=== PATIENT | female | born 1985 | race Caucasian/White ===

== ENCOUNTER 2018-06-23 19:03 | Emergency (ER) | payer OTHER, MEDICAID ==
[~2018-06-23] VITALS: Ht 170.2 cm; Wt 72.6 kg
[2018-06-23] MEDS ORDERED: PHENERGAN 25 MG25 M1 PO (19:12)
[2018-06-23] MEDS ORDERED: HYDROXYZINE HCL25 M1 PO (19:13)
[2018-06-23 19:24] LABS: URINE BILIRUBIN NEGATIVE (Negative); URINE BLOOD TRACE (Negative); URINE CLARITY CLEAR; URINE COLOR YELLOW; URINE GLUCOSE-RANDOM NEGATIVE (Negative); URINE KETONES NEGATIVE (Negative); URINE LEUKOCYTES-REFLEX NEGATIVE (Negative); URINE NITRITE-REFLEX NEGATIVE (Negative); URINE PROTEIN NEGATIVE (Negative); URINE SPECIFIC GRAVITY <= 1.005 (1.005-1.030); URINE UROBILINOGEN 0.2 E.U./dl (0.2-1.0)
[2018-06-23 19:34] LABS: ABSOLUTE BASOPHILS 0.1 thou/uL (0.0-0.2); ABSOLUTE EOSINOPHILS 0.1 thou/uL (0.0-0.7); ABSOLUTE LYMPHOCYTES 2.6 thou/uL (0.8-5.3); ABSOLUTE MONOCYTES 0.7 thou/uL (0.0-1.2); ABSOLUTE NEUTROPHILS 4.7 thou/uL (1.6-8.1); BASOPHILS 0.9 %; EOSINOPHILS 0.7 %; HEMATOCRIT 40.4 % (37.0-47.0); HEMOGLOBIN 13.4 gm/dL (12.0-15.0); LYMPHOCYTES 31.7 %; MCH 28.8 pg (26.0-34.0); MCHC 33.1 g/dL (28.0-37.0); MCV 86.8 fL (80.0-100.0); MONOCYTES 8.4 %; MPV 9.1 fl. (7.2-11.1); NUCLEATED RBCS 0 /100WBC; PLATELET COUNT* 301 thou/uL (150-400); POLYS 58.3 %; RBC 4.65 mil/uL (4.20-5.00); RDW-CV 15.6 % (10.5-14.5); WBC 8.1 thou/uL (4.0-11.0)
[2018-06-23 19:37] LABS: BACTERIA-REFLEX 1-9 Few /HPF (None Seen); SQUAMOUS 0-3 Few /LPF (0-3); URINE RBC 0-2 Rare /HPF (0-2); URINE WBC-REFLEX 0-5 Rare /HPF (0-5)
[2018-06-23 19:38] LABS: CASTS None Seen /LPF (None Seen); CRYSTALS None Seen /LPF (None Seen)
[2018-06-23 19:45] LABS: CALCIUM 8.6 mg/dL (8.5-10.1); CREATININE 0.7 mg/dL (0.6-1.3); POTASSIUM 3.7 mmol/L (3.5-5.1)
[2018-06-23 19:49] LABS: ALBUMIN 3.7 g/dL (3.4-5.0); TOTAL BILIRUBIN 0.5 mg/dL (<0.1-1.0); TOTAL PROTEIN 7.7 g/dL (6.4-8.2)
[2018-06-23] MEDS ORDERED: BENTYL 20 MG TA20 M1 PO (20:02)
[2018-06-23] MEDS ORDERED: ZOFRAN4 MG PO (20:02)
[2018-06-23 20:23] VITALS: BP 137/81
== END 2018-06-23 20:26 | disposition home or self-care (01) ==
LOC: M.ERS 19:03
PROVIDERS: Nurse Practitioner Family
DX: K52.9 Noninfective gastroenteritis and colitis, unspecified (principal)

== ENCOUNTER 2021-11-21 06:29 | Emergency (ER) | payer OTHER, MEDICAID ==
[~2021-11-21] VITALS: Ht 170.2 cm; Wt 59.0 kg
[~2021-11-21 06:29] MED LIST: BENTYL 20 MG TA20 M1 PO; HYDROXYZINE HCL25 M1 PO; PHENERGAN 25 MG25 M1 PO; ZOFRAN4 MG PO
[2021-11-21 07:25] LABS: URINE BILIRUBIN NEGATIVE (Negative); URINE BLOOD 3+ (Negative); URINE CLARITY SL CLOUDY; URINE COLOR YELLOW; URINE GLUCOSE-RANDOM NEGATIVE (Negative); URINE KETONES NEGATIVE (Negative); URINE LEUKOCYTES-REFLEX 1+ (Negative); URINE NITRITE-REFLEX NEGATIVE (Negative); URINE PROTEIN 1+ (Negative); URINE SPECIFIC GRAVITY >= 1.030 (1.005-1.030); URINE UROBILINOGEN 0.2 E.U./dl (0.2-1.0)
[2021-11-21 07:40] LABS: SQUAMOUS 4-10 Moderate /LPF (0-3)
[2021-11-21 07:41] LABS: BACTERIA-REFLEX >30 Many /HPF (None Seen); CASTS None Seen /LPF (None Seen); CRYSTALS None Seen /LPF (None Seen); MUCUS 0-3 Light strn/LPF (None Seen); URINE RBC >20 Many /HPF (0-2)
[2021-11-21] MEDS ORDERED: BACTRIM DS TAB1 EAC1 PO (07:53)
[2021-11-21 08:05] VITALS: BP 104/59
== END 2021-11-21 08:06 | disposition home or self-care (01) ==
LOC: M.ERS 06:29
PROVIDERS: Emergency Medicine
DX: N39.0 Urinary tract infection, site not specified (principal); Z88.8 Allergy status to other drugs, medicaments and biological substances